=== PATIENT | female | born 1965 | race Two or more races ===

== ENCOUNTER 2025-02-17 11:32 | Inpatient (IN) | payer OTHER ==
[~2025-02-17] VITALS: Ht 160 cm; Wt 82.6 kg
--- NOTE | 2025-02-17 11:57 | ED.PDOC ---
History of Present Illness HPI Comments This is a 59-year-old female with past medical history of kidney stone presented to the ED with severe right lower abdominal pain for 20 minutes prior to this visit. Patient states that 20 minutes ago she started having severe right lower abdominal pain which is sharp pain, 8/10, localized without any aggravating and relieving factors and associated with nausea and vomiting. She took tamsulosin prior to coming to the ER. Two years ago she was diagnosed with right-sided kidney stone and underwent ESWL. She denies fever, chills, hematuria, dysuria or altered bowel habit. Attestation note: Dr. Blackmon: I was the supervising attending for this ED encounter. Please see the resident's notes. I was available for questions and consultations. Differential diagnosis: DDX include Diverticulitis, colitis, gastroenteritis, acute abdomen, SBO, enteritis, constipation, volvulus, appendicitis, Gallbladder disease, choledocolithiasis, ascending cholangitis, pancreatitis, intraAbdominal mass/neoplasm, hepatitis, UTI, pylonephritis, kidney stone, aneurysm, dissection, Inflammatory bowel disease, gastroparesis, ischemic bowel, ovarian torsion, ovarian cyst/mass, tubo-ovarian abscess, , ectopic , PID, STD. MDM: MDM: patient presented with the above HPI.--right lower quadrant----workup was initiated. patient was found with the above mentioned diagnosis. the following medications were ordered: please refer to order lists of meds and tests obtained by myself Dr. Blackmon. Patient ED course and VS have been stabilized. Patient has been reassessed in the ED and remained in a stable condition. Pertinent incidental findings were discussed with the patient and/or family. Patient/family voices understanding and is agreeable with plan. Patient has been observed in the ED adequate length of time to insure improvement/stability. Escalation of care considered: Consideration of escalation to observation or admission Patient already has Flomax at home. Patient was DISCHARGED home in a stable condition. All the reports of any imaging studies that were ordered by myself were reviewed by myself. Chief Complaint: Flank Pain Time Seen by MD: 11:34 Allergies: Coded Allergies: NO KNOWN ALLERGIES (Unverified , 02/17/25) Home Meds Active Scripts Cephalexin Monohydrate (Cephalexin) 500 Mg Tab, 1 TAB PO TID for 7 Days, #21 TAB Prov:ANNY BLACKMON DO 02/17/25 Ondansetron Odt 4MG Tab (ZOFRAN PO) 4 Mg Tb, 4 MG PO Q8HPRN PRN for 3 Days, #9 TAB ODT TAB-DISSOLVE IN MOUTH, THEN SWALLOW Prov:ANNY BLACKMON DO 02/17/25 Information Source: Patient Mode of Arrival: Ambulatory Severity: Severe Timing: Minutes Duration: Since onset Prehospital treatment: None Past Medical History PAST MEDICAL HISTORY: Kidney Stones Surgical History: Appendectomy TRAFFIC CLERK History: Denies all TRAFFIC CLERK Hx Family History Family History: Reviewed,noncontributory to illness Social History Smoker: Pipe Alcohol: Denies ETOH Use Drugs: Denies Drug Use Lives In: Home Constitutional: denies: chills, diaphoresis, fatigue, fever, malaise, sweats, weakness, others EENTM: denies: blurred vision, double vision, ear bleeding, ear discharge, ear drainage, ear pain, ear ringing, eye pain, eye redness, hearing loss, mouth pain, mouth swelling, nasal discharge, nose bleeding, nose congestion, nose pain, photophobia, tearing, throat pain, throat swelling, voice changes, others Respiratory: denies: cough, hemoptysis, orthopnea, SOB at rest, shortness of breath, SOB with excertion, stridor, wheezing, others Cardiovascular: denies: chest pain, dizzy spells, diaphoresis, Dyspnea on exertion, edema, irregular heart beat, left arm pain, lightheadedness, palpitations, PND, syncope, others Gastrointestinal: reports: abdominal pain, nausea, vomiting; denies: abdomen distended, blood streaked bowels, constipated, diarrhea, dysphagia, difficulty swallowing, hematemesis, melena, poor appetite, poor fluid intake, rectal bleeding, rectal pain, others Genitourinary: denies: abnormal vagina bleeding, burning, dyspareunia, dysuria, flank pain, frequency, hematuria, incontinence, pain, , vagina discharge, urgency, others Neurological: denies: dizziness, fainting, headache, left sided numbness, left sided weakness, numbness, paresthesia, pre-existing deficit, right sided numbness, right sided weakness, seizure, speech problems, tingling, tremors, weakness, others Musculoskeletal: denies: back pain, gout, joint pain, joint swelling, muscle pain, muscle stiffness, neck pain, others Integumetry: denies: bruises, change in color, change in hair/nails, dryness, laceration, lesions, lumps, rash, wounds, others Allergic/Immunocompromised: denies: Difficulty Healing, Frequent Infections, Hives, Itching, others Hematologic/Lymphatic: denies: anemia, blood clots, easy bleeding, easy bruising, swollen glands, others Endocrine: denies: excessive hunger, excessive sweating, excessive thirst, excessive urination, flushing, intolerance to cold, intolerance to heat, unexplained weight gain, unexplained weight loss, others Psychiatric: denies: anxiety, bipolar disorder, depression, hopeless, panic disorder, schizophrenia, sleepless, suicidal, others Physical Exam General Appearance: Moderate Distress HEENT: Normal ENT Inspection, Pharynx Normal, TMs Normal Neck: Full Range of Motion, Non-Tender, Normal, Normal Inspection Respiratory: Chest Non-Tender, Lungs Clear, No Accessory Muscle Use, No Resp iratory Distress, Normal Breath Sounds Cardiovascular: No Edema, No JVD, No Murmur, No Gallop, Normal Peripheral Pulses, Regular Rate/Rhythm Breast Exam: Deferred Gastrointestinal: No Organomegaly, No Pulsatile Mass, Normal Bowel Sounds, RLQ, Tenderness Genitalia: Deferred Pelvic: Deferred Rectal: Deferred Extremities: No calf tenderness, Normal capillary refill, Normal inspection, Normal range of motion, Non-tender, No pedal edema Neurologic: Alert, ward maid II-XII nml as Tested, No Motor Deficits, Normal Affect, Normal Mood, No Sensory Deficits Cerebellar Function: NOT DONE Reflexes: NOT DONE Skin: NOT DONE Peripheral Pulses: 2+ carotid (R), 2+ carotid (L), 2+ femoral (R), 2+ femoral (L), 2+ dorsalis pedis (R), 2+ dorsalis pedis (L), 2+ Radial (R), 2+ Radial (L), 2+ Brachial (R), 2+ Brachial (L) Lymphatic: NOT DONE Was a procedure done? Was a procedure done?: No Differential Dx Considerations may include: Kidney stone, diverticulitis, colitis, enteritis, UTI, ovarian torsion X-Ray, Labs, Meds, VS Vital Signs Date Time Temp Pulse Resp B/P (MAP) Pulse Ox O2 Delivery O2 Flow Rate FiO2 02/17/25 16:39 145/83 02/17/25 15:24 55 18 97 Room Air 02/17/25 15:24 97.8 55 18 144/96 (112) 97 97.8 02/17/25 13:43 148/69 02/17/25 13:38 98.0 71 17 146/78 (100) 98 98.0 02/17/25 13:38 71 17 98 Room Air 02/17/25 11:33 97.6 98 16 148/69 69 97.6 Lab Test 02/17/25 15:24 02/17/25 14:24 02/17/25 13:21 Range/Units Urine Color Yellow Yellow Urine Clarity Clear Clear Urine pH 5.0 5.0-9.0 Urine Specific [place] 1.025 1.001-1.035 Urine Protein Negative Negative Urine Ketones Negative Negative Urine Blood 3+ H Negative /uL Urine Nitrite Negative Negative Urine Bilirubin Negative Negative Urine Urobilinogen Normal Negative mg/dL Urine Leukocyte Esterase 2+ Negative /uL Urine RBC 63 0 - 4 /hpf Urine Microscopic WBC 16 H 0-5 /HPF Urine Squamous Epithelial Cells Few <5 /hpf Urine Bacteria Few H None Seen /hpf Urine Mucus Few None Seen Urine Glucose Normal Normal mg/dL Troponin I High Sensitivity < 3 L < 3 L </=34 ng/L White Blood Count 6.1 4.4-10.8 10^3/uL Red Blood Count 4.73 4.0-5.20 10^6/uL Hemoglobin 14.3 12.2-16.2 g/dL Hematocrit 41.9 36.0-46.0 % Mean Corpuscular Volume 88.7 80.0-100.0 fL Mean Corpuscular Hemoglobin 30.2 28.0-32.0 pg Mean Corpuscular Hemoglobin Concent 34.0 32.0-36.0 g/dL Red Cell Distribution Width 13.2 11.8-14.3 % Platelet Count 183 140-450 10^3/uL Mean Platelet Volume 9.1 6.9-10.8 fL Neutrophils (%) (Auto) 66.5 37.0-80.0 % Lymphocytes (%) (Auto) 24.4 10.0-50.0 % Monocytes (%) (Auto) 6.2 0.0-12.0 % Eosinophils (%) (Auto) 1.7 0.0-7.0 % Basophils (%) (Auto) 1.2 0.0-2.0 % Neutrophils # (Auto) 4.1 1.6-8.6 10 ^3/uL Lymphocytes # (Auto) 1.5 0.4-5.4 10 ^3/uL Monocytes # (Auto) 0.4 0-1.3 10 ^3/uL Eosinophils # (Auto) 0.1 0-0.8 10 ^3/uL Basophils # (Auto) 0.1 0-0.2 10 ^3/uL Nucleated Red Blood Cells 0.2 % Sodium Level 143 136-145 mmol/L Potassium Level 3.9 3.5-5.1 mmol/L Chloride Level 107 98-107 mmol/L Carbon Dioxide Level 27 20-31 mmol/L Anion Gap 9 5-15 Blood Urea Nitrogen 14 9-23 mg/dL Creatinine 0.71 0.550-1.02 mg/dL Glomerular Filtration Rate Calc 99 >90 mL/min BUN/Creatinine Ratio 19.7 10.0-20.0 Serum Glucose 87 74-106 mg/dL Lactic Acid Level 1.0 0.4-2.0 mmol/L Calcium Level 9.3 8.7-10.4 mg/dL Total Bilirubin 1.4 H 0.2-1.0 mg/dL Aspartate Amino Transferase (AST) 26 13-40 U/L Alanine Aminotransferase (ALT) 42 H 7-40 U/L Alkaline Phosphatase 86 46-116 U/L Total Protein 6.9 5.7-8.2 g/dL Albumin 4.4 3.2-4.8 g/dL Current Medications Medications (Trade) Dose Ordered Sig/Brisa Route Start Time Stop Time Status Last Admin Sodium Chloride 500 ml @ 500 mls/hr Q1H ONCE IV 02/17/25 12:00 02/17/25 12:59 DC 02/17/25 13:43 Fentanyl Citrate 100 mcg ONCE ONCE IV 02/17/25 12:00 02/17/25 12:01 DC 02/17/25 13:43 Tamsulosin HCl (Flomax) 0.4 mg ONCE ONCE PO 02/17/25 15:30 02/17/25 15:31 DC 02/17/25 15:52 Ondansetron HCl (Zofran Po) 8 mg ONCE ONCE PO 02/17/25 15:30 02/17/25 15:31 DC 02/17/25 15:52 Ceftriaxone Sodium 50 ml @ 100 mls/hr ONCE ONCE IV 02/17/25 16:30 02/17/25 16:59 DC 02/17/25 17:19 Fentanyl Citrate 100 mcg ONCE ONCE IV 02/17/25 16:45 02/17/25 16:46 DC 02/17/25 16:39 Ketorolac Tromethamine (Toradol Injection) 30 mg ONCE ONCE IV 02/17/25 17:15 02/17/25 17:16 DC 02/17/25 17:19 [place] [id number] Ph: [phone] DIAGNOSTIC IMAGING Diagnostic Imaging Report : [id number] Signed PATIENT: NITO BISHOP ACCT: [id number] UNIT: [id number] : 1965 LOC: ER ROOM / BED: / AGE / SEX: 59 / F ADM STATUS: REG ER SERVICE 1137 ORDERING PHYSICIAN: ANNY BLACKMON DO PROCEDURE(s): ABPL - CT AB PEL WO CON-NO ORAL OR IV REASON: R FLANK PAIN, ORDER NUMBER(s): [id number], ACCESSION NUMBER(s): [id number] Exam: CT CT AB PEL WO CON-NO ORAL OR IV History: R FLANK PAIN, Comparison Study: None Technique: Multidetector spiral CT of the abdomen and pelvis was performed from lung bases to pubic symphysis. Imaging was performed without intravenous contrast. Coronal and sagittal multiplanar reformats were obtained from the axial data set by the technologist. Radiation Dose : 1. Abdomen/Pelvis: CTDIvol 18.95 mGy, DLP 1039.7 mGy*cm. Findings: Evaluation of vasculature and solid organs is limited due to lack of intravenous contrast use. Lung Bases: Lung bases are clear. Visualized portions of the heart and pericardium are unremarkable. Liver: The liver is normal in size. No focal lesions. Diffusely hypoattenuating liver parenchyma consistent with hepatic steatosis. Gallbladder and Biliary Tree: The gallbladder is unremarkable. No intrahepatic or extrahepatic biliary ductal dilatation. Spleen: Unremarkable Pancreas: The pancreas is grossly unremarkable. Adrenal Glands: Unremarkable Kidneys: There is mild right hydroureteronephrosis. There are several phleboliths in the pelvis which limit evaluation for stones but one of the calcifications is located near the right UVJ measuring about 2 mm and may be the cause for the right hydroureteronephrosis. Left kidney shows nonobstructive 3 mm calculus in the lower pole. GI tract: The stomach is grossly normal in appearance. No evidence of small bowel wall thickening or abnormal dilatation to suggest bowel obstruction. The colon is unremarkable. The appendix is not visualized, however no inflammatory changes in the right lower quadrant to suggest acute appendicitis. Peritoneum/mesentery/retroperitoneum. No evidence of free intraperitoneal air. No ascites. No evidence of suspicious lymphadenopathy. Abdominal Wall: Unremarkable. Vasculature: The visualized abdominal aorta is normal in size and caliber. Evaluation of abdominal and pelvic vessels is limited due to lack of intravenous contrast. Urinary Bladder: Grossly unremarkable for degree of distention. Pelvic Organs: Unremarkable Musculoskeletal: No aggressive focal bony lesions, acute fractures or dislocation. Soft tissues: Bilateral breast implants. IMPRESSION: 1. Mild right hydroureteronephrosis. This may be due to a 2 mm calculus at the right ureterovesical junction. 2. Hepatic steatosis. ATED BY: BALAJI DAS MD DICTATED DATE/TIME: 02/17/25 1234 SIGNED BY: BALAJI DAS MD SIGNED DATE/TIME: 02/17/25 1234 CC: X-Ray, Labs, Meds, VS Comment Exam: CT CT AB PEL WO CON-NO ORAL OR IV History: R FLANK PAIN, Comparison Study: None Technique: Multidetector spiral CT of the abdomen and pelvis was performed from lung bases to pubic symphysis. Imaging was performed without intravenous contrast. Coronal and sagittal multiplanar reformats were obtained from the axial data set by the technologist. Radiation Dose : 1. Abdomen/Pelvis: CTDIvol 18.95 mGy, DLP 1039.7 mGy*cm. Findings: Evaluation of vasculature and solid organs is limited due to lack of intravenous contrast use. Lung Bases: Lung bases are clear. Visualized portions of the heart and pericardium are unremarkable. Liver: The liver is normal in size. No focal lesions. Diffusely hypoattenuating liver parenchyma consistent with hepatic steatosis. Gallbladder and Biliary Tree: The gallbladder is unremarkable. No intrahepatic or extrahepatic biliary ductal dilatation. Spleen: Unremarkable Pancreas: The pancreas is grossly unremarkable. Adrenal Glands: Unremarkable Kidneys: There is mild right hydroureteronephrosis. There are several ph leboliths in the pelvis which limit evaluation for stones but one of the calcifications is located near the right UVJ measuring about 2 mm and may be the cause for the right hydroureteronephrosis. Left kidney shows nonobstructive 3 mm calculus in the lower pole. GI tract: The stomach is grossly normal in appearance. No evidence of small bowel wall thickening or abnormal dilatation to suggest bowel obstruction. The colon is unremarkable. The appendix is not visualized, however no inflammatory changes in the right lower quadrant to suggest acute appendicitis. Peritoneum/mesentery/retroperitoneum. No evidence of free intraperitoneal air. No ascites. No evidence of suspicious lymphadenopathy. Abdominal Wall: Unremarkable. Vasculature: The visualized abdominal aorta is normal in size and caliber. Evaluation of abdominal and pelvic vessels is limited due to lack of intravenous contrast. Urinary Bladder: Grossly unremarkable for degree of distention. Pelvic Organs: Unremarkable Musculoskeletal: No aggressive focal bony lesions, acute fractures or dislocation. Soft tissues: Bilateral breast implants. IMPRESSION: 1. Mild right hydroureteronephrosis. This may be due to a 2 mm calculus at the right ureterovesical junction. 2. Hepatic steatosis. Images Reviewed?: Images reviewed and evaluated by me Time of 1ST Reevaluation: 16:32 (Patient initially improved after fentanyl but then she started having severe recurrent pain prior to discharge. I will admit the patient for pain control. Antibiotics were also initiated.) Reevaluation 1ST: Unchanged Patient Education/Counseling: Diagnosis, Treatment Family Education/Counseling: Other Comments This is a 59-year-old female with past medical history of kidney stone presented to the ED with severe right lower abdominal pain and vomiting Initial physical exam demonstrated mild tenderness in the right lower abdomen CBC was unremarkable BMP demonstrated mildly elevated bilirubin and transaminitis The patient was given IV fentanyl [address] abdomen pelvis without contrast demonstrated 2 mm calculus at right ureterovesical junction and mild right hydroureteronephrosis UA demonstrated feature of UTI The patient needs inpatient admission for pain management, UTI and further evaluation and management of kidney stone. SEPSIS Sepsis Screen Date sepsis recognized/suspect: Feb 17, 2025 Time Sepsis recognized/suspect: 1135 Recent Procedure: No On Antibiotic Therapy: No Respiratory Rate >20: No Heart Rate >90: No Temp<36 C (96.8 F) or >38.3 C: No SBP <90 or MAP <65 mmHG: No New Acute Mental Status Change: No Is the patient on CPAP, BIPAP,: No Physician Orders Ct Ab Pel Wo Con-No Oral Or Iv (02/17/25 11:37) Electrocardigram (02/17/25 11:37) Event Technician (02/17/25 ) Vital Signs Date Time Temp Pulse Resp B/P (MAP) Pulse Ox O2 Delivery O2 Flow Rate FiO2 02/17/25 16:39 145/83 02/17/25 15:24 55 18 97 Room Air 02/17/25 15:24 97.8 55 18 144/96 (112) 97 97.8 02/17/25 13:43 148/69 02/17/25 13:38 98.0 71 17 146/78 (100) 98 98.0 02/17/25 13:38 71 17 98 Room Air 02/17/25 11:33 97.6 98 16 148/69 69 97.6 Laboratory Tests Test 02/17/25 13:21 Lactic Acid Level 1.0 mmol/L (0.4-2.0) White Blood Count 6.1 10^3/uL (4.4-10.8) Medications Medications Dose Ordered Sig/Brisa Route Start Time Stop Time Status Last Admin Dose Admin Ceftriaxone Sodium 50 ml @ 100 mls/hr ONCE ONCE IV 02/17/25 16:30 02/17/25 16:59 DC 02/17/25 17:19 Fentanyl Citrate 100 mcg ONCE ONCE IV 02/17/25 12:00 02/17/25 12:01 DC 02/17/25 13:43 Fentanyl Citrate 100 mcg ONCE ONCE IV 02/17/25 16:45 02/17/25 16:46 DC 02/17/25 16:39 Ketorolac Tromethamine 30 mg ONCE ONCE IV 02/17/25 17:15 02/17/25 17:16 DC 02/17/25 17:19 Ondansetron HCl 8 mg ONCE ONCE PO 02/17/25 15:30 02/17/25 15:31 DC 02/17/25 15:52 Sodium Chloride 500 ml @ 500 mls/hr Q1H ONCE IV 02/17/25 12:00 02/17/25 12:59 DC 02/17/25 13:43 Tamsulosin HCl 0.4 mg ONCE ONCE PO 02/17/25 15:30 02/17/25 15:31 DC 02/17/25 15:52 Departure 1 Departure Time of Disposition: 15:26 Impression: Primary Impression: Hydroureteronephrosis Additional Impressions: Kidney stone UTI (urinary tract infection) Disposition: ADMITTED INPATIENT Admit to: Tele Condition: Guarded Additional Instructions: Additional instructions: You MUST follow-up with your primary care/family doctor in 1 to 2 days. If you are unable to see your primary care/family doctor, please return to our emergency room for re-assessment and re-evaluation in 1 to 2 days. Return to the emergency room here in our facility or to the nearest ER [facility] if your symptoms change or worsen. CONSULTATIONS: you MUST Follow-up for consultation as soon as possible with: urology in 1-2 days. Please call for appointment. You MUST call the consultants office yourself to make an appointment. You may need to arrange that through your insurance and/or your primary/family doctor. If you are unable to see the surgical product sales consultant in 1 to 2 days, you must return to our emergency room (or any other ER of your choice) for re-assessment and re- evaluation. Adequate fluid hydration. Below is a copy of your radiological report for follow up: [place] [address] Ph: [phone] DIAGNOSTIC IMAGING Diagnostic Imaging Report : [id number] Signed PATIENT: NITO BISHOP ACCT: [id number] UNIT: [id number] : 1965 LOC: ER ROOM / BED: / AGE / SEX: 59 / F ADM STATUS: REG ER SERVICE 1137 ORDERING PHYSICIAN: ANNY BLACKMON DO PROCEDURE(s): ABPL - CT AB PEL WO CON-NO ORAL OR IV REASON: R FLANK PAIN, ORDER NUMBER(s): [id number], ACCESSION NUMBER(s): [id number] Exam: CT CT AB PEL WO CON-NO ORAL OR IV History: R FLANK PAIN, Comparison Study: None Technique: Multidetector spiral CT of the abdomen and pelvis was performed from lung bases to pubic symphysis. Imaging was performed without intravenous contrast. Coronal and sagittal multiplanar reformats were obtained from the axial data set by the technologist. Radiation Dose : 1. Abdomen/Pelvis: CTDIvol 18.95 mGy, DLP 1039.7 mGy*cm. Findings: Evaluation of vasculature and solid organs is limited due to lack of intravenous contrast use. Lung Bases: Lung bases are clear. Visualized portions of the heart and pericardium are unremarkable. Liver: The liver is normal in size. No focal lesions. Diffusely hypoattenuating liver parenchyma consistent with hepatic steatosis. Gallbladder and Biliary Tree: The gallbladder is unremarkable. No intrahepatic or extrahepatic biliary ductal dilatation. Spleen: Unremarkable Pancreas: The pancreas is grossly unremarkable. Adrenal Glands: Unremarkable Kidneys: There is mild right hydroureteronephrosis. There are several phleboliths in the pelvis which limit evaluation for stones but one of the calcifications is located near the right UVJ measuring about 2 mm and may be the cause for the right hydroureteronephrosis. Left kidney shows nonobstructive 3 mm calculus in the lower pole. GI tract: The stomach is grossly normal in appearance. No evidence of small bowel wall thickening or abnormal dilatation to suggest bowel obstruction. The colon is unremarkable. The appendix is not visualized, however no inflammatory changes in the right lower quadrant to suggest acute appendicitis. Peritoneum/mesentery/retroperitoneum. No evidence of free intraperitoneal air. No ascites. No evidence of suspicious lymphadenopathy. Abdominal Wall: Unremarkable. Vasculature: The visualized abdominal aorta is normal in size and caliber. Evaluation of abdominal and pelvic vessels is limited due to lack of intravenous contrast. Urinary Bladder: Grossly unremarkable for degree of distention. Pelvic Organs: Unremarkable Musculoskeletal: No aggressive focal bony lesions, acute fractures or dislocation. Soft tissues: Bilateral breast implants. IMPRESSION: 1. Mild right hydroureteronephrosis. This may be due to a 2 mm calculus at the right ureterovesical junction. 2. Hepatic steatosis. ATED BY: BALAJI DAS MD DICTATED DATE/TIME: 02/17/25 1234 SIGNED BY: BALAJI DAS MD SIGNED DATE/TIME: 02/17/25 1234 CC: e-Prescriptions Cephalexin Monohydrate (Cephalexin) 500 Mg Tab 1 TAB PO TID for 7 Days, #21 TAB Prov: ANNY BLACKMON DO 02/17/25 Ondansetron Odt 4MG Tab (ZOFRAN PO) 4 Mg Tb 4 MG PO Q8HPRN PRN for 3 Days, #9 TAB ODT TAB-DISSOLVE IN MOUTH, THEN SWALLOW Prov: ANNY BLACKMON DO 02/17/25 Discharged With: Self Critical Care Note Critical Care Time?: No Stability Stability form required: No I personally scribed for ZOHREH FATIMA ([email or web address]) on 02/17/25 at 15:26. Electronically submitted by Franklin Muñoz ([email or web address]). ZOHREH FATIMA Feb 17, 2025 11:57 ANNY BLACKMON DO Feb 17, 2025 15:56
--- NOTE | 2025-02-17 12:36 | DVH ---
Exam: CT CT AB PEL WO CON-NO ORAL OR IV History: R FLANK PAIN, Comparison Study: None Technique: Multidetector spiral CT of the abdomen and pelvis was performed from lung bases to pubic s ymphysis. Imaging was performed without intravenous contrast. Coronal and sagittal multiplanar reform ats were obtained from the axial data set by the technologist. Radiation Dose : 1. Abdomen/Pelvis: CTDIvol 18.95 mGy, DLP 1039.7 mGy*cm. Findings: Evaluation of vasculature and solid organs is limited due to lack of intravenous contrast use. Lung Bases: Lung bases are clear. Visualized portions of the heart and pericardium are unremarkable. Liver: The liver is normal in size. No focal lesions. Diffusely hypoattenuating liver parenchyma con sistent with hepatic steatosis. Gallbladder and Biliary Tree: The gallbladder is unremarkable. No intrahepatic or extrahepatic biliar y ductal dilatation. Spleen: Unremarkable Pancreas: The pancreas is grossly unremarkable. Adrenal Glands: Unremarkable Kidneys: There is mild right hydroureteronephrosis. There are several phleboliths in the pelvis whic h limit evaluation for stones but one of the calcifications is located near the right UVJ measuring a bout 2 mm and may be the cause for the right hydroureteronephrosis. Left kidney shows nonobstructive 3 mm calculus in the lower pole. GI tract: The stomach is grossly normal in appearance. No evidence of small bowel wall thickening or abnormal dilatation to suggest bowel obstruction. The colon is unremarkable. The appendix is not visu alized, however no inflammatory changes in the right lower quadrant to suggest acute appendicitis. Peritoneum/mesentery/retroperitoneum. No evidence of free intraperitoneal air. No ascites. No evidenc e of suspicious lymphadenopathy. Abdominal Wall: Unremarkable. Vasculature: The visualized abdominal aorta is normal in size and caliber. Evaluation of abdominal a nd pelvic vessels is limited due to lack of intravenous contrast. Urinary Bladder: Grossly unremarkable for degree of distention. Pelvic Organs: Unremarkable Musculoskeletal: No aggressive focal bony lesions, acute fractures or dislocation. Soft tissues: Bilateral breast implants. IMPRESSION: 1. Mild right hydroureteronephrosis. This may be due to a 2 mm calculus at the right ureterovesical junction. 2. Hepatic steatosis.
[2025-02-17 13:36] LABS: Hematocrit 41.9 % (36.0-46.0); Hemoglobin 14.3 g/dL (12.2-16.2); Mean Corpuscular Hemoglobin 30.2 pg (28.0-32.0); Mean Corpuscular Volume 88.7 fL (80.0-100.0); Nucleated Red Blood Cells % 0.2 %
[2025-02-17] MEDS: fentaNYL CITRATE 100 MCG/2 ML VL IV ONE ×2 (13:43→16:39)
[2025-02-17] MEDS: SODIUM CHLORIDE 0.9% 500 ML IV ONE (13:43)
[2025-02-17 13:53] LABS: Alkaline Phosphatase 86 U/L (46-116); Anion Gap 9 (5-15); BUN/Creatinine Ratio 19.7 (10.0-20.0); Blood Urea Nitrogen 14 mg/dL (9-23); Calcium 9.3 mg/dL (8.7-10.4); Carbon Dioxide 27 mmol/L (20-31); Chloride 107 mmol/L (98-107); Glucose 87 mg/dL (74-106); Potassium 3.9 mmol/L (3.5-5.1); Sodium 143 mmol/L (136-145); Total Protein 6.9 g/dL (5.7-8.2)
[2025-02-17 13:54] LABS: Alanine Aminotransferase 42 U/L (7-40); Albumin 4.4 g/dL (3.2-4.8)
[2025-02-17 13:59] LABS: Bilirubin, Total 1.4 mg/dL (0.2-1.0)
[2025-02-17] MEDS: ONDANSETRON ODT 4 MG TAB PO ONE (15:52)
[2025-02-17] MEDS: TAMSULOSIN HYDROCHLORIDE 0.4 MG CAP PO ONE (15:52)
[2025-02-17] MEDS ORDERED: ZOFR4T PO (15:58)
[2025-02-17 16:08] LABS: Urine Protein, UAD Negative (Negative)
[2025-02-17] MEDS ORDERED: CEPH500T PO (16:29)
[2025-02-17] MEDS: cefTRIAXone 1GM/50ML D5W 50 ML IV ONE (17:19)
[2025-02-17] MEDS: KETOROLAC TROMETH 30 MG/ML 1ML VIAL IV ONE (17:19)
[2025-02-17] MEDS ORDERED: TEMAZEPAM 15 MG CAP PO PRN (18:15)
[2025-02-17] MEDS ORDERED: ACETAMINOPHEN 325 MG TAB PO PRN (18:15)
[2025-02-17] MEDS ORDERED: HYDROcodone-ACET 5/325MG TAB PO PRN (18:15)
--- NOTE | 2025-02-17 18:27 | DVHHP2 ---
History of Present Illness Reason for Visit: Abdominal pain History of Present Illness 59-year-old female presents for evaluation of right lower quadrant sharp pain has been ongoing since this morning. She also reports occasional nausea. No fever or chills. She does report a history of kidney stones. No hematuria or dysuria. Past Medical History Kidney stones Past Surgical History Appendectomy Family History Noncontributory Smoke: No ALCOHOL: none Drugs: None Lives: with Family Review of Systems Review of Systems Review of systems are currently negative otherwise addressed in HPI. Allergies: Coded Allergies: NO KNOWN ALLERGIES (Unverified , 02/17/25) Exam Vital Signs Vital Signs Date Time Temp Pulse Resp B/P (MAP) Pulse Ox O2 Delivery O2 Flow Rate FiO2 02/17/25 16:39 145/83 02/17/25 15:24 55 18 97 Room Air 02/17/25 15:24 97.8 97.8 Exam Gen: 59-year-old female in mild distress Skin: Warm, dry, normal color and texture, no rash. HEENT: Normocephalic atraumatic, mucous membranes moist and pink. Neck: Cervical and supraclavicular nodes normal without enlargement, trachea is midline, thyroid gland is normal without masses. Pulmonary: Clear to auscultation and percussion bilaterally. Cardiac: Regular rate and rhythm. No murmur Abdomen: Sof, nondistended, bowel sounds present all 4 quadrants, no guarding, no rigidity, no organomegaly. Extremities: No cyanosis, clubbing, no edema Neuro: Cranial nerves II through XII grossly intact, normal affect and speech, no focal motor deficits. Labs/Xrays ORDERING PHYSICIAN: ANNY BLACKMON DO PROCEDURE(s): ABPL - CT AB PEL WO CON-NO ORAL OR IV REASON: R FLANK PAIN, ORDER NUMBER(s): [id number], ACCESSION NUMBER(s): [id number] Exam: CT CT AB PEL WO CON-NO ORAL OR IV History: R FLANK PAIN, Comparison Study: None Technique: Multidetector spiral CT of the abdomen and pelvis was performed from lung bases to pubic symphysis. Imaging was performed without intravenous contrast. Coronal and sagittal multiplanar reformats were obtained from the axial data set by the technologist. Radiation Dose : 1. Abdomen/Pelvis: CTDIvol 18.95 mGy, DLP 1039.7 mGy*cm. Findings: Evaluation of vasculature and solid organs is limited due to lack of intravenous contrast use. Lung Bases: Lung bases are clear. Visualized portions of the heart and pericardium are unremarkable. Liver: The liver is normal in size. No focal lesions. Diffusely hypoattenuating liver parenchyma consistent with hepatic steatosis. Gallbladder and Biliary Tree: The gallbladder is unremarkable. No intrahepatic or extrahepatic biliary ductal dilatation. Spleen: Unremarkable Pancreas: The pancreas is grossly unremarkable. Adrenal Glands: Unremarkable Kidneys: There is mild right hydroureteronephrosis. There are several phleboliths in the pelvis which limit evaluation for stones but one of the calcifications is located near the right UVJ measuring about 2 mm and may be the cause for the right hydroureteronephrosis. Left kidney shows nonobstructive 3 mm calculus in the lower pole. GI tract: The stomach is grossly normal in appearance. No evidence of small bowel wall thickening or abnormal dilatation to suggest bowel obstruction. The colon is unremarkable. The appendix is not visualized, however no inflammatory changes in the right lower quadrant to suggest acute appendicitis. Peritoneum/mesentery/retroperitoneum. No evidence of free intraperitoneal air. No ascites. No evidence of suspicious lymphadenopathy. Abdominal Wall: Unremarkable. Vasculature: The visualized abdominal aorta is normal in size and caliber. Evaluation of abdominal and pelvic vessels is limited due to lack of intravenous contrast. Urinary Bladder: Grossly unremarkable for degree of distention. Pelvic Organs: Unremarkable Musculoskeletal: No aggressive focal bony lesions, acute fractures or dislocation. Soft tissues: Bilateral breast implants. IMPRESSION: 1. Mild right hydroureteronephrosis. This may be due to a 2 mm calculus at the right ureterovesical junction. 2. Hepatic steatosis. Labs Test 02/17/25 15:24 02/17/25 14:24 02/17/25 13:21 Range/Units Urine Color Yellow Yellow Urine Clarity Clear Clear Urine pH 5.0 5.0-9.0 Urine Specific [place] 1.025 1.001-1.035 Urine Protein Negative Negative Urine Ketones Negative Negative Urine Blood 3+ H Negative /uL Urine Nitrite Negative Negative Urine Bilirubin Negative Negative Urine Urobilinogen Normal Negative mg/dL Urine Leukocyte Esterase 2+ Negative /uL Urine RBC 63 0 - 4 /hpf Urine Microscopic WBC 16 H 0-5 /HPF Urine Squamous Epithelial Cells Few <5 /hpf Urine Bacteria Few H None Seen /hpf Urine Mucus Few None Seen Urine Glucose Normal Normal mg/dL Troponin I High Sensitivity < 3 L </=34 ng/L White Blood Count 6.1 4.4-10.8 10^3/uL Red Blood Count 4.73 4.0-5.20 10^6/uL Hemoglobin 14.3 12.2-16.2 g/dL Hematocrit 41.9 36.0-46.0 % Mean Corpuscular Volume 88.7 80.0-100.0 fL Mean Corpuscular Hemoglobin 30.2 28.0-32.0 pg Mean Corpuscular Hemoglobin Concent 34.0 32.0-36.0 g/dL Red Cell Distribution Width 13.2 11.8-14.3 % Platelet Count 183 140-450 10^3/uL Mean Platelet Volume 9.1 6.9-10.8 fL Neutrophils (%) (Auto) 66.5 37.0-80.0 % Lymphocytes (%) (Auto) 24.4 10.0-50.0 % Monocytes (%) (Auto) 6.2 0.0-12.0 % Eosinophils (%) (Auto) 1.7 0.0-7.0 % Basophils (%) (Auto) 1.2 0.0-2.0 % Neutrophils # (Auto) 4.1 1.6-8.6 10 ^3/uL Lymphocytes # (Auto) 1.5 0.4-5.4 10 ^3/uL Monocytes # (Auto) 0.4 0-1.3 10 ^3/uL Eosinophils # (Auto) 0.1 0-0.8 10 ^3/uL Basophils # (Auto) 0.1 0-0.2 10 ^3/uL Nucleated Red Blood Cells 0.2 % Sodium Level 143 136-145 mmol/L Potassium Level 3.9 3.5-5.1 mmol/L Chloride Level 107 98-107 mmol/L Carbon Dioxide Level 27 20-31 mmol/L Anion Gap 9 5-15 Blood Urea Nitrogen 14 9-23 mg/dL Creatinine 0.71 0.550-1.02 mg/dL Glomerular Filtration Rate Calc 99 >90 mL/min BUN/Creatinine Ratio 19.7 10.0-20.0 Serum Glucose 87 74-106 mg/dL Lactic Acid Level 1.0 0.4-2.0 mmol/L Calcium Level 9.3 8.7-10.4 mg/dL Total Bilirubin 1.4 H 0.2-1.0 mg/dL Aspartate Amino Transferase (AST) 26 13-40 U/L Alanine Aminotransferase (ALT) 42 H 7-40 U/L Alkaline Phosphatase 86 46-116 U/L Total Protein 6.9 5.7-8.2 g/dL Albumin 4.4 3.2-4.8 g/dL SEPSIS Sepsis Screen Date sepsis recognized/suspect: Feb 17, 2025 Time Sepsis recognized/suspect: 1134 Recent Procedure: No On Antibiotic Therapy: No Respiratory Rate >20: No Heart Rate >90: No Temp<36 C (96.8 F) or >38.3 C: No SBP <90 or MAP <65 mmHG: No New Acute Mental Status Change: No Is the patient on CPAP, BIPAP,: No Physician Orders Ct Ab Pel Wo Con-No Oral Or Iv (02/17/25 11:37) Electrocardigram (02/17/25 11:37) Flight Agent (02/17/25 ) Ceftriaxone 1gm/50ml D5w (Rocephin) (02/18/25 09:00) * Urology Consult (02/17/25 18:13) Basic Metabolic Panel (02/18/25 04:00) Admit (02/17/25 18:13) Hydrocodone-Acet 5/325mg Tab ([place] 5/32 (02/17/25 18:15) Temazepam (Restoril) (02/17/25 18:15) Ondansetron Hcl (Zofran) (02/17/25 18:15) Complete Blood Count (02/18/25 04:00) Condition: Stable (02/17/25 18:13) Acetaminophen Tablet (Tylenol Tablet) (02/17/25 18:15) Bedrest With Bathroom Privileg (02/17/25 18:13) Morphine Sulfate Injection (02/17/25 18:15) Vital Signs Date Time Temp Pulse Resp B/P (MAP) Pulse Ox O2 Delivery O2 Flow Rate FiO2 02/17/25 16:39 145/83 02/17/25 15:24 55 18 97 Room Air 02/17/25 15:24 97.8 55 18 144/96 (112) 97 97.8 02/17/25 13:43 148/69 02/17/25 13:38 98.0 71 17 146/78 (100) 98 98.0 02/17/25 13:38 71 17 98 Room Air 02/17/25 11:33 97.6 98 16 148/69 69 97.6 Laboratory Tests Test 02/17/25 13:21 Lactic Acid Level 1.0 mmol/L (0.4-2.0) White Blood Count 6.1 10^3/uL (4.4-10.8) Medications Medications Dose Ordered Sig/Brisa Route Start Time Stop Time Status Last Admin Dose Admin Ceftriaxone Sodium 50 ml @ 100 mls/hr ONCE ONCE IV 02/17/25 16:30 02/17/25 16:59 DC 02/17/25 17:19 100 MLS/HR Fentanyl Citrate 100 mcg ONCE ONCE IV 02/17/25 12:00 02/17/25 12:01 DC 02/17/25 13:43 100 MCG Fentanyl Citrate 100 mcg ONCE ONCE IV 02/17/25 16:45 02/17/25 16:46 DC 02/17/25 16:39 100 MCG Ketorolac Tromethamine 30 mg ONCE ONCE IV 02/17/25 17:15 02/17/25 17:16 DC 02/17/25 17:19 30 MG Ondansetron HCl 8 mg ONCE ONCE PO 02/17/25 15:30 02/17/25 15:31 DC 02/17/25 15:52 8 MG Sodium Chloride 500 ml @ 500 mls/hr Q1H ONCE IV 02/17/25 12:00 02/17/25 12:59 DC 02/17/25 13:43 500 MLS/HR Tamsulosin HCl 0.4 mg ONCE ONCE PO 02/17/25 15:30 02/17/25 15:31 DC 02/17/25 15:52 0.4 MG Assessment/Plan Assessment/Plan Assessment Nephrolithiasis Hydroureternephrosis UTI Plan Admit the patient to [facility] [place] to the hospitalist Urology consultation Rocephin Pain management Continue treatment per orders. Plan discussed with: Patient My Orders Orders - ALICE CASTILLO AGACNP Procedure Category Date Status Time Ceftriaxone 1gm/50ml PHA 02/18/25 Logged D5w (Rocephin) 09:00 * Urology Consult CONS 02/17/25 Transmitted 18:13 Basic Metabolic Panel LAB 02/18/25 Verified 04:00 Admit ADMIT 02/17/25 Transmitted 18:13 Hydrocodone-Acet PHA 02/17/25 Logged 5/325mg Tab ([place] 18:15 Temazepam (Restoril) PHA 02/17/25 Logged 18:15 Ondansetron Hcl PHA 02/17/25 Logged (Zofran) 18:15 Complete Blood Count LAB 02/18/25 Verified 04:00 Condition: Stable CHIDI 02/17/25 In Process 18:13 Acetaminophen Tablet PHA 02/17/25 Logged (Tylenol Tablet) 18:15 Bedrest With Bathroom CHIDI 02/17/25 In Process Privileg 18:13 Morphine Sulfate PHA 02/17/25 Logged Injection 18:15 Date of Service: Feb 17, 2025 Billing Provider: ALICE CASTILLO Common Visit Codes: [id number] INP/OBS CARE (MOD) ALICE CASTILLO Feb 17, 2025 18:27
[2025-02-17] MEDS: MORPHINE SULFATE INJ 2 MG/ml SYRG IV PRN (20:54)
[2025-02-17] MEDS: ONDANSETRON HCL 4 MG/2 ML VIAL IV PRN (20:54)
[2025-02-17 22:06] VITALS: BP 141/76; PULSE 66; RESP 16; TEMP 97.8; O2SAT 95
[2025-02-17] MEDS: KETOROLAC TROMETH 30 MG/ML 1ML VIAL IV PRN (22:31)
[2025-02-17 22:47] VITALS: BP 141/76; PULSE 66; RESP 14; TEMP 97.8; O2SAT 95
[2025-02-18 01:00] VITALS: BP 110/55; PULSE 84; RESP 18; TEMP 98; O2SAT 95
[2025-02-18 05:00] VITALS: BP 100/46; PULSE 64; RESP 18; TEMP 97.9; O2SAT 99
[2025-02-18 06:08] LABS: Potassium 4.0 mmol/L (3.5-5.1); Sodium 143 mmol/L (136-145)
[2025-02-18 06:09] LABS: Anion Gap 8 (5-15); Carbon Dioxide 27 mmol/L (20-31)
[2025-02-18 06:10] LABS: Calcium 8.9 mg/dL (8.7-10.4)
[2025-02-18 06:11] LABS: Chloride 108 mmol/L (98-107)
[2025-02-18 06:14] LABS: Glucose 92 mg/dL (74-106); Hematocrit 38.1 % (36.0-46.0); Hemoglobin 13.2 g/dL (12.2-16.2); Mean Corpuscular Hemoglobin 30.8 pg (28.0-32.0); Mean Corpuscular Volume 89.0 fL (80.0-100.0); Nucleated Red Blood Cells % 0.0 %
[2025-02-18 06:15] LABS: BUN/Creatinine Ratio 22.1 (10.0-20.0); Blood Urea Nitrogen 15 mg/dL (9-23)
[2025-02-18 09:00] VITALS: BP 115/62; PULSE 60; RESP 17; TEMP 97.6; O2SAT 95
[2025-02-18] MEDS: cefTRIAXone 1GM/50ML D5W 50 ML IV SCH (09:48)
--- NOTE | 2025-02-18 10:17 | DVHINCON2 ---
Date of service: Feb 18, 2025 Referring Physician Hospitalist Reason for Consultation ureteral stone History of Present Illness History Source: Patient, RN Notes, MD Notes Exam Limitations: No limitations HPI 59-year-old female presents for evaluation of right lower quadrant sharp pain has been ongoing since this morning. She also reports occasional nausea. No fever or chills. She does report a history of kidney stones. No hematuria or dysuria. Home Meds No Active Prescriptions or Reported Meds Past Medical History Patient Family History: Hypertension G8 FATHER Secondary malignant neoplasm of lung G8 MOTHER G8 FATHER H&P Exam Vital Signs Vital Signs Date Time Temp Pulse Resp B/P (MAP) Pulse Ox O2 Delivery O2 Flow Rate FiO2 02/18/25 09:00 97.6 60 17 115/62 (79) 95 97.6 02/17/25 22:47 Room Air* 0 21 General Appeara: Well developed, Well nourished, Normal Appearance Neuro/Mental St: Alert, Oriented Appearance: Appropriate appearance, Appropriate insight Eye contact/ Speech: Cooperative, Good eye contact, Normal speech Skin Exam: Normal inspection, Normal color, Warm/dry Labs/Xrays [place] [address] Ph: [phone] DIAGNOSTIC IMAGING Diagnostic Imaging Report : [id number] Signed PATIENT: NITO BISHOP ACCT: [id number] UNIT: [id number] : 1965 LOC: ER ROOM / BED: / AGE / SEX: 59 / F ADM STATUS: REG ER SERVICE 1137 ORDERING PHYSICIAN: ANNY BLACKMON DO PROCEDURE(s): ABPL - CT AB PEL WO CON-NO ORAL OR IV REASON: R FLANK PAIN, ORDER NUMBER(s): [id number], ACCESSION NUMBER(s): [id number] Exam: CT CT AB PEL WO CON-NO ORAL OR IV History: R FLANK PAIN, Comparison Study: None Technique: Multidetector spiral CT of the abdomen and pelvis was performed from lung bases to pubic symphysis. Imaging was performed without intravenous contrast. Coronal and sagittal multiplanar reformats were obtained from the axial data set by the technologist. Radiation Dose : 1. Abdomen/Pelvis: CTDIvol 18.95 mGy, DLP 1039.7 mGy*cm. Findings: Evaluation of vasculature and solid organs is limited due to lack of intravenous contrast use. Lung Bases: Lung bases are clear. Visualized portions of the heart and per icardium are unremarkable. Liver: The liver is normal in size. No focal lesions. Diffusely hypoattenuating liver parenchyma consistent with hepatic steatosis. Gallbladder and Biliary Tree: The gallbladder is unremarkable. No intrahepatic or extrahepatic biliary ductal dilatation. Spleen: Unremarkable Pancreas: The pancreas is grossly unremarkable. Adrenal Glands: Unremarkable Kidneys: There is mild right hydroureteronephrosis. There are several phleboliths in the pelvis which limit evaluation for stones but one of the calcifications is located near the right UVJ measuring about 2 mm and may be the cause for the right hydroureteronephrosis. Left kidney shows nonobstructive 3 mm calculus in the lower pole. GI tract: The stomach is grossly normal in appearance. No evidence of small bowel wall thickening or abnormal dilatation to suggest bowel obstruction. The colon is unremarkable. The appendix is not visualized, however no inflammatory changes in the right lower quadrant to suggest acute appendicitis. Peritoneum/mesentery/retroperitoneum. No evidence of free intraperitoneal air. No ascites. No evidence of suspicious lymphadenopathy. Abdominal Wall: Unremarkable. Vasculature: The visualized abdominal aorta is normal in size and caliber. Evaluation of abdominal and pelvic vessels is limited due to lack of intravenous contrast. Urinary Bladder: Grossly unremarkable for degree of distention. Pelvic Organs: Unremarkable Musculoskeletal: No aggressive focal bony lesions, acute fractures or dislocat ion. Soft tissues: Bilateral breast implants. IMPRESSION: 1. Mild right hydroureteronephrosis. This may be due to a 2 mm calculus at the right ureterovesical junction. 2. Hepatic steatosis. ATED BY: BALAJI DAS MD DICTATED DATE/TIME: 02/17/25 1234 SIGNED BY: BALAJI DAS MD SIGNED DATE/TIME: 02/17/25 1234 CC: Labs Test 02/18/25 05:38 02/17/25 15:24 02/17/25 14:24 02/17/25 13:21 Range/Units White Blood Count 7.4 4.4-10.8 10^3/uL Red Blood Count 4.29 4.0-5.20 10^6/uL Hemoglobin 13.2 12.2-16.2 g/dL Hematocrit 38.1 36.0-46.0 % Mean Corpuscular Volume 89.0 80.0-100.0 fL Mean Corpuscular Hemoglobin 30.8 28.0-32.0 pg Mean Corpuscular Hemoglobin Concent 34.6 32.0-36.0 g/dL Red Cell Distribution Width 13.1 11.8-14.3 % Platelet Count 173 140-450 10^3/uL Mean Platelet Volume 9.4 6.9-10.8 fL Neutrophils (%) (Auto) 64.3 37.0-80.0 % Lymphocytes (%) (Auto) 26.2 10.0-50.0 % Monocytes (%) (Auto) 8.2 0.0-12.0 % Eosinophils (%) (Auto) 0.8 0.0-7.0 % Basophils (%) (Auto) 0.5 0.0-2.0 % Neutrophils # (Auto) 4.7 1.6-8.6 10 ^3/uL Lymphocytes # (Auto) 1.9 0.4-5.4 10 ^3/uL Monocytes # (Auto) 0.6 0-1.3 10 ^3/uL Eosinophils # (Auto) 0.1 0-0.8 10 ^3/uL Basophils # (Auto) 0 0-0.2 10 ^3/uL Nucleated Red Blood Cells 0.0 % Sodium Level 143 136-145 mmol/L Potassium Level 4.0 3.5-5.1 mmol/L Chloride Level 108 H 98-107 mmol/L Carbon Dioxide Level 27 20-31 mmol/L Anion Gap 8 5-15 Blood Urea Nitrogen 15 9-23 mg/dL Creatinine 0.68 0.550-1.02 mg/dL Glomerular Filtration Rate Calc 102 >90 mL/min BUN/Creatinine Ratio 22.1 H 10.0-20.0 Serum Glucose 92 74-106 mg/dL Calcium Level 8.9 8.7-10.4 mg/dL Urine Color Yellow Yellow Urine Clarity Clear Clear Urine pH 5.0 5.0-9.0 Urine Specific [place] 1.025 1.001-1.035 Urine Protein Negative Negative Urine Ketones Negative Negative Urine Blood 3+ H Negative /uL Urine Nitrite Negative Negative Urine Bilirubin Negative Negative Urine Urobilinogen Normal Negative mg/dL Urine Leukocyte Esterase 2+ Negative /uL Urine RBC 63 0 - 4 /hpf Urine Microscopic WBC 16 H 0-5 /HPF Urine Squamous Epithelial Cells Few <5 /hpf Urine Bacteria Few H None Seen /hpf Urine Mucus Few None Seen Urine Glucose Normal Normal mg/dL Troponin I High Sensitivity < 3 L </=34 ng/L Lactic Acid Level 1.0 0.4-2.0 mmol/L Total Bilirubin 1.4 H 0.2-1.0 mg/dL Aspartate Amino Transferase (AST) 26 13-40 U/L Alanine Aminotransferase (ALT) 42 H 7-40 U/L Alkaline Phosphatase 86 46-116 U/L Total Protein 6.9 5.7-8.2 g/dL Albumin 4.4 3.2-4.8 g/dL Assessment/Plan Problem List: (1) Kidney stone (2) Hydroureteronephrosis (3) UTI (urinary tract infection) Plan expulsive measures pain meds prn encourage fluids cleared from urology standpoint Plan discussed with: Patient MICKIE HAMMONDS NP Feb 18, 2025 10:17
[2025-02-18 13:00] VITALS: BP 96/56; PULSE 72; RESP 21; TEMP 98.3; O2SAT 94
[2025-02-18] MEDS ORDERED: HYDR-4798 PO (14:08)
[2025-02-18] MEDS ORDERED: ZOFR4T PO (14:08)
[2025-02-18] MEDS ORDERED: NITR-52 PO (14:11)
--- NOTE | 2025-02-18 14:13 | DVHDS2 ---
Discharge Summary Date of Admission Feb 17, 2025 at 18:13 Date of Discharge: Feb 18, 2025 Labs/Diagnostic Data: Laboratory Results Test 02/18/25 05:38 02/17/25 15:24 02/17/25 14:24 02/17/25 13:21 White Blood Count 7.4 10^3/uL (4.4-10.8) Red Blood Count 4.29 10^6/uL (4.0-5.20) Hemoglobin 13.2 g/dL (12.2-16.2) Hematocrit 38.1 % (36.0-46.0) Mean Corpuscular Volume 89.0 fL (80.0-100.0) Mean Corpuscular Hemoglobin 30.8 pg (28.0-32.0) Mean Corpuscular Hemoglobin Concent 34.6 g/dL (32.0-36.0) Red Cell Distribution Width 13.1 % (11.8-14.3) Platelet Count 173 10^3/uL (140-450) Mean Platelet Volume 9.4 fL (6.9-10.8) Neutrophils (%) (Auto) 64.3 % (37.0-80.0) Lymphocytes (%) (Auto) 26.2 % (10.0-50.0) Monocytes (%) (Auto) 8.2 % (0.0-12.0) Eosinophils (%) (Auto) 0.8 % (0.0-7.0) Basophils (%) (Auto) 0.5 % (0.0-2.0) Neutrophils # (Auto) 4.7 10 ^3/uL (1.6-8.6) Lymphocytes # (Auto) 1.9 10 ^3/uL (0.4-5.4) Monocytes # (Auto) 0.6 10 ^3/uL (0-1.3) Eosinophils # (Auto) 0.1 10 ^3/uL (0-0.8) Basophils # (Auto) 0 10 ^3/uL (0-0.2) Nucleated Red Blood Cells 0.0 % Sodium Level 143 mmol/L (136-145) Potassium Level 4.0 mmol/L (3.5-5.1) Chloride Level 108 mmol/L (98-107) Carbon Dioxide Level 27 mmol/L (20-31) Anion Gap 8 (5-15) Blood Urea Nitrogen 15 mg/dL (9-23) Creatinine 0.68 mg/dL (0.550-1.02) Glomerular Filtration Rate Calc 102 mL/min (>90) BUN/Creatinine Ratio 22.1 (10.0-20.0) Serum Glucose 92 mg/dL (74-106) Calcium Level 8.9 mg/dL (8.7-10.4) Urine Color Yellow (Yellow) Urine Clarity Clear (Clear) Urine pH 5.0 (5.0-9.0) Urine Specific [place] 1.025 (1.001-1.035) Urine Protein Negative (Negative) Urine Ketones Negative (Negative) Urine Blood 3+ /uL (Negative) Urine Nitrite Negative (Negative) Urine Bilirubin Negative (Negative) Urine Urobilinogen Normal mg/dL (Negative) Urine Leukocyte Esterase 2+ /uL (Negative) Urine RBC 63 /hpf (0 - 4) Urine Microscopic WBC 16 /HPF (0-5) Urine Squamous Epithelial Cells Few /hpf (<5) Urine Bacteria Few /hpf (None Seen) Urine Mucus Few (None Seen) Urine Glucose Normal mg/dL (Normal) Troponin I High Sensitivity < 3 ng/L (</=34) Lactic Acid Level 1.0 mmol/L (0.4-2.0) Total Bilirubin 1.4 mg/dL (0.2-1.0) Aspartate Amino Transferase (AST) 26 U/L (13-40) Alanine Aminotransferase (ALT) 42 U/L (7-40) Alkaline Phosphatase 86 U/L (46-116) Total Protein 6.9 g/dL (5.7-8.2) Albumin 4.4 g/dL (3.2-4.8) Other Laboratory Tests 02/18/25 05:38 Brief Hx & Hospital Course: 59-year-old female presents for evaluation of right lower quadrant sharp pain has been ongoing since this morning. She also reports occasional nausea. No fever or chills. She does report a history of kidney stones. No hematuria or dysuria. Past Medical History: Kidney stones Patient admitted for obstructed nephrolithiasis on right side, with hydronephrosis on CT,. Patient was admitted given patient had intractable pain intractable nausea and vomiting and po intolerance. Urology was consulted and patient was feeling better, urology signed off as patient is stable for discharge. Patient is seen pain controlled stable for discharge as per plan below. Vital signs stable. Diagnosis: Acute obstructed nephrolithiasis, with hydronephrosis Acute complicated cystitis Tachycardia Tachypnea Sirs without AOD Hyperbilirubinemia P.o. intolerance , due to above Intractable nausea and vomiting, due to above Discharge plan: Take Tylenol for pain 1st line second-line you can take ibuprofen, 3rd line take [place] 10 prescribed up to 3 times daily Take nitrofurantoin 100 mg tablet twice daily for next 5 days Take Zofran as needed for nausea Hydrate well You strainer to strain urine, if stone caught take to PCP for stone analysis Follow up with PCP in 1-2 weeks for discharge follow up. Condition at Discharge: Fair Final Diagnosis/Problems List Acute obstructed nephrolithiasis, with hydronephrosis Acute complicated cystitis Tachycardia Tachypnea Sirs without AOD Hyperbilirubinemia P.o. intolerance , due to above Intractable nausea and vomiting, due to above Discharge Disposition: Home Discharge Instruct/Medications Diet: Cardiac 2g Na,low cholest Activity: No Restrictions, As Tolerated Scheduled Nitrofurantoin (Nitrofurantoin), 1 CAP PO BID Scheduled PRN Hydrocodone-Acetaminophen (Hydrocodone Bitartrate/AC 10-325 mg), 1 TAB PO TIDP PRN Ondansetron Odt 4MG Tab (Zofran Po), 4 MG PO TIDP PRN Discharge Statement: "Patient was advised to return to the ER or call 911 if any headaches, dizziness, shortness of breath, chest pain, abdominal pain, bleeding, fevers, or worsening of medical condition. Patient was counseled about treatment plan, medications, possible side effects, patientverbalized understanding. All questions were answered to the best of my ability. This discharge took greater then 30 minutes in planning, reviewing documentation, counseling the patient, and discussing with other team members." Date of Service: Feb 18, 2025 Billing Provider: SANTO GILMORE MD Common Visit Codes: [id number] DISCH DAY >30min SANTO GILMORE MD Feb 18, 2025 14:13
[2025-02-18 14:18] VITALS: BP 96/56; PULSE 72; RESP 21; TEMP 98.3; O2SAT 94
== END 2025-02-18 15:30 | disposition home or self-care (01) | DRG 690 ==
LOC: ER 11:32 → OVERFLOW 18:13 → EAST 21:27
PROVIDERS: ADMIT Nurse Practitioner; ATTEND Nurse Practitioner
DX: N13.6 Pyonephrosis (principal); N30.00 Acute cystitis without hematuria; R65.10 Systemic inflammatory response syndrome (SIRS) of non-infectious origin without acute organ dysfunction; K76.0 Fatty (change of) liver, not elsewhere classified; F17.200 Nicotine dependence, unspecified, uncomplicated; R00.0 Tachycardia, unspecified; R06.82 Tachypnea, not elsewhere classified; Z90.49 Acquired absence of other specified parts of digestive tract; Z80.1 Family history of malignant neoplasm of trachea, bronchus and lung; Z82.49 Family history of ischemic heart disease and other diseases of the circulatory system
CPT/HCPCS: 36415; 74176; 80048; 80053; 81001; 83605; 84484; 85025; 96361; 96374; 96375; G0378; J1885; J2405; Q0162